=== PATIENT | male | born 1985 | race Two or more races ===

== ENCOUNTER 2020-11-13 10:51 | Emergency (ER) | payer OTHER ==
[~2020-11-13 10:51] MED LIST: ERYTHROMYCIN OP1 GM OP; IBUPROFEN600 MG PO; NORFLEX 100 MG100 MG PO
[2020-11-13] MEDS ORDERED: IBUPROFEN600 MG PO (12:58)
[2020-11-13] MEDS ORDERED: BACTROBAN OINT22 GM EXT (12:58)
== END 2020-11-13 13:34 | disposition home or self-care (01) ==
LOC: ER1 10:51
DX: L03.011 Cellulitis of right finger (principal); L02.511 Cutaneous abscess of right hand; F17.200 Nicotine dependence, unspecified, uncomplicated
CPT/HCPCS: 64450; 87070; 87077; 87186; 87205; 99283

== ENCOUNTER 2020-11-18 15:01 | Emergency (ER) | payer OTHER ==
[~2020-11-18 15:01] MED LIST changes: +BACTROBAN OINT22 GM EXT
[2020-11-18] MEDS ORDERED: BACTRIM DS TAB1 EACH PO (16:22)
[2020-11-18] MEDS ORDERED: ENDOCET 5-3251 EACH PO (16:26)
== END 2020-11-18 17:34 | disposition home or self-care (01) ==
LOC: ER1 15:01
DX: L02.511 Cutaneous abscess of right hand (principal); L03.011 Cellulitis of right finger; F17.200 Nicotine dependence, unspecified, uncomplicated
CPT/HCPCS: 10060; 99283

== ENCOUNTER → 2021-01-22 | Emergency (ER) | payer OTHER ==
[~2021-01-22] MED LIST changes: +BACTRIM DS TAB1 EACH PO; +ENDOCET 5-3251 EACH PO; +MYCOSTATIN100000 UTS PO
[2021-01-22 08:12] LABS: HEMOGLOBIN 12.7 gm/dl (14.0-17.5); RED BLOOD COUNT 3.74 M/UL (4.20-5.50); WHITE BLOOD COUNT 5.8 K/UL (4.5-11.0)
[2021-01-22 08:38] LABS: BUN/CREATININE RATIO 14 (0-10)
== END | disposition home or self-care (01) ==
LOC: ER1 06:40
PROVIDERS: Nurse Practitioner
DX: B37.0 Candidal stomatitis (principal); Z20.822 Contact with and (suspected) exposure to COVID-19; K21.9 Gastro-esophageal reflux disease without esophagitis; F17.210 Nicotine dependence, cigarettes, uncomplicated; Z88.8 Allergy status to other drugs, medicaments and biological substances; Z88.1 Allergy status to other antibiotic agents
CPT/HCPCS: 80053; 85025; 96372; 99283; J1885; U0002

== ENCOUNTER → 2021-04-20 | Outpatient (CLI) | payer OTHER | LOC: RAD 17:54 | DX: M54.50 Low back pain, unspecified (principal); G89.29 Other chronic pain; Z87.828 Personal history of other (healed) physical injury and trauma; Z18.10 Retained metal fragments, unspecified | CPT/HCPCS: 72100 ==